=== PATIENT | male | born 1940 | race Caucasian/White ===

== ENCOUNTER 2017-11-06 07:39 | Emergency (ER) | payer MEDICARE, BC ==
[2017-11-06 07:58] VITALS: BP 158/77
[2017-11-06] MEDS ORDERED: Acetaminophen TAB* 325 MG PO ONE (07:59)
--- NOTE | 2017-11-06 08:36 | UC ---
Throat Pain/Nasal Librado HPI - HPI Summary HPI Summary: 77-year-old male comes in with a complaint of sore throat. Started yesterday. Its moderate to severe. He has not taken anything to try to make it better. It hurts to swallow. He feels like he might be some swelling in TherE. Positive fevers. No chest congestion. Minimal rhinorrhea. He is not a smoker. - History of Current Complaint Chief Complaint: UCGeneralIllness Stated Complaint: SORE THROAT Time Seen by Provider: 11/06/17 08:25 Pain Intensity: 0 - Allergies/Home Medications Allergies/Adverse Reactions: Allergies Allergy/AdvReac Type Severity Reaction Status Date / Time aspirin Allergy GI Upset Verified 11/06/17 07:50 Home Medications: Home Medications Losartan/Hydrochlorothiazide [Losartan Potassium/Hydroc 100-12.5 mg] 1 tab PO DAILY 11/06/17 [History Confirmed 11/06/17] Tamsulosin CAP* [Flomax CAP*] 0.4 mg PO DAILY 11/06/17 [History Confirmed ] amLODIPine TAB* [Norvasc 5 mg TAB*] 10 mg PO DAILY 11/06/17 [History Confirmed 11/06/17] PMH/Surg Hx/FS Hx/Imm Hx - Additional Past Medical History Additional PMH: NO DM - Surgical History Surgical History: Yes Surgery Procedure, Year, and Place: TONSILLECTOMY A CHILD. LEFT CYSTO STENT 05/2014. TURP 2015 - Family History Known Family History: Positive: Hypertension, Diabetes - Social History Alcohol Use: None Substance Use Type: None Smoking Status (MU): Former Smoker Amount Used/How Often: SMOKED A PIPE A FEW YEARS Have You Smoked in the Last Year: No When Did the Patient Quit Smoking/Using Tobacco: 10-12 YEARS AGO Review of Systems Constitutional: Fever Skin: Negative Eyes: Negative ENT: Sore Throat, Nasal Discharge Respiratory: Negative Cardiovascular: Negative Gastrointestinal: Negative Motor: Negative Neurovascular: Negative Musculoskeletal: Negative Neurological: Negative Psychological: Negative Is Patient Immunocompromised?: No All Other Systems Reviewed And Are Negative: Yes Physical Exam Triage Information Reviewed: Yes Appearance: Well-Appearing, No Pain Distress, Well-Nourished Vital Signs: Initial Vital Signs Temp 102.2 F 11/06/17 07:52 Pulse 93 11/06/17 07:52 Resp 20 11/06/17 07:52 BP 158/77 11/06/17 07:52 Pulse Ox 94 11/06/17 07:52 Eye Exam: Normal Eyes: Positive: Conjunctiva Clear ENT: Positive: Hearing grossly normal, Pharyngeal erythema, Nasal congestion, TMs normal. Negative: Tonsillar swelling, Tonsillar exudate, Hoarse voice Dental Exam: Normal Neck exam: Normal Neck: Positive: Supple, Enlarged Nodes @ - ANTERIOR Respiratory Exam: Normal Respiratory: Positive: Lungs clear, Normal breath sounds, No respiratory distress Cardiovascular Exam: Normal Cardiovascular: Positive: RRR Musculoskeletal Exam: Normal Musculoskeletal: Positive: Strength Intact, ROM Intact Neurological Exam: Normal Neurological: Positive: Alert Psychological Exam: Normal Skin Exam: Normal Throat Pain/Nasal Course/Dx - Course Course Of Treatment: DISCUSSED VIRAL VERSES BACTERIAL INFECTION AND THE ROLE OF ANTIBIOTICS. THE PATIENT WISHES TO BE ON ANTIBIOTICS AT THIS TIME. - Differential Dx/Diagnosis Provider Diagnoses: PHARYNGITIS Discharge - Sign-Out/Discharge Documenting (check all that apply): Patient Departure All imaging exams completed and their final reports reviewed: No Studies - Discharge Plan Condition: Stable Disposition: HOME Prescriptions: Amoxicillin PO (*) [Amoxicillin 875 MG (*)] 875 mg PO BID #20 tab Patient Education Materials: Pharyngitis (ED), Fever in Adults (ED) Referrals: Talia Le MD [Primary Care Provider] - Additional Instructions: FOLLOW UP WITH YOUR DOCTOR. GET RECHECKED FOR ANY WORSENING OF YOUR CONDITION OR QUESTIONS OR CONCERNS. - Billing Disposition and Condition Condition: STABLE Disposition: Home
== END 2017-11-06 08:56 | disposition home or self-care (01) ==
LOC: UCEAST 07:39
DX: J02.9 Acute pharyngitis, unspecified (principal); Z88.6 Allergy status to analgesic agent; Z87.891 Personal history of nicotine dependence
CPT/HCPCS: 87651; 99212; A9270-GY; G0463

== ENCOUNTER 2021-11-09 05:40 | Observation (INO) ==
[2021-11-09] MEDS ORDERED: Famotidine IV 10 MG/ML 2 ml VIAL (20 mg) IV ONE (06:00)
[2021-11-09] MEDS ORDERED: Lactated Ringers 1000 ml BAG 1,000 ML IV SCH (06:00)
[2021-11-09] MEDS ORDERED: Buffered Lidocaine 1% SYRIN 1 ml INTRADERM ONE ×2 (06:00→06:18)
[2021-11-09] MEDS ORDERED: ceFAZolin 2 GM PREMIX 2 GM/50 ML BAG ONE (06:18)
[2021-11-09] MEDS ORDERED: Famotidine IV 10 MG/ML 2 ml VIAL (20 mg) ONE (06:18)
[2021-11-09] MEDS ORDERED: Ropivacaine 5 MG/ML 20 ML VIAL 0.5% (100 MG) ONE (06:55)
[2021-11-09] MEDS ORDERED: Sevoflurane BOTTLE ONE (06:58)
[2021-11-09] MEDS ORDERED: Sodium Chloride 0.9% 20 ML ONE (07:17)
[2021-11-09] MEDS ORDERED: Midazolam 5 mg/5 ml VIAL 1 mg/ml 5 ml VIAL (5 mg) ONE (07:17)
[2021-11-09] MEDS ORDERED: fentaNYL 100 mcg/2 ml 50 MCG/ML VIAL ONE (07:17)
[2021-11-09] MEDS ORDERED: Lidocaine 2% PF 5 ML VIAL ONE (07:17)
[2021-11-09] MEDS ORDERED: ROPIVACAINE 5 MG/ML 30 ML BTL (0.5%) ONE (07:17)
[2021-11-09] MEDS ORDERED: Acetaminophen IV 1 GM/100ML 1,000 MG/100 ML BAG IV ONE (08:17)
[2021-11-09] MEDS ORDERED: Morphine 2 MG/ML SYRINGE IV PRN (08:18)
[2021-11-09] MEDS ORDERED: Ondansetron ODT 4 mg TAB 4 MG TAB PO PRN (08:18)
[2021-11-09] MEDS ORDERED: Magnesium Hydroxide LIQ 30 ML UDC PO PRN (08:18)
[2021-11-09] MEDS ORDERED: Lactulose 30 ml UDC PO PRN (08:18)
[2021-11-09] MEDS ORDERED: Ondansetron 4 mg VIAL 2 MG/ML 2 ml VIAL IV PRN ×2 (08:18→09:45)
[2021-11-09] MEDS ORDERED: Naloxone 0.4 mg VIAL 0.4 mg/ml 1 ml VIAL IV PRN (09:45)
[2021-11-09] MEDS ORDERED: fentaNYL 100 mcg/2 ml 50 MCG/ML VIAL IV PRN (09:45)
[2021-11-09] MEDS ORDERED: Ondansetron 4 mg VIAL 2 MG/ML 2 ml VIAL ONE (11:46)
[2021-11-09] MEDS: Lactated Ringers 1000 ml BAG 1,000 ML IV SCH (11:49)
[2021-11-09] MEDS: Magnesium Hydroxide LIQ 30 ML UDC PO SCH ×2 (13:37→21:36)
[2021-11-09] MEDS: Vitamin THERAPEUTIC TAB PO SCH (13:37)
[2021-11-09] MEDS ORDERED: Prochlorperazine 5 mg/ml 2 ml VIAL (10 mg) IV PRN (13:40)
[2021-11-09] MEDS ORDERED: Scopolamine 1 mg/72hr PATCH ONE (13:46)
[2021-11-09] MEDS ORDERED: Prochlorperazine 5 mg/ml 2 ml VIAL (10 mg) ONE (13:46)
[2021-11-09] MEDS ORDERED: Scopolamine 1 mg/72hr PATCH TRANSDERM SCH (14:00)
[2021-11-09] MEDS: ceFAZolin 1 GM ADVAN 1 GM in NS 0.9% 50 ML 50 ML IVPB SCH (16:31)
[2021-11-10] MEDS: ceFAZolin 1 GM ADVAN 1 GM in NS 0.9% 50 ML 50 ML IVPB SCH ×2 (00:41→08:02)
[2021-11-10] MEDS: Lactated Ringers 1000 ml BAG 1,000 ML IV SCH (04:43)
[2021-11-10 06:09] LABS: Hematocrit 35 % (42-52); Hemoglobin 11.8 g/dL (14.0-18.0); Mean Platelet Volume 8.1 fL (7.4-10.4); Platelet Count 215 10^3/uL (150-450)
[2021-11-10 06:38] LABS: Calcium 8.2 mg/dL (8.6-10.3)
[2021-11-10 06:44] LABS: eGFR CKD-EPI 92.2 (>60)
[2021-11-10] MEDS: Magnesium Hydroxide LIQ 30 ML UDC PO SCH (07:57)
[2021-11-10] MEDS: Vitamin THERAPEUTIC TAB PO SCH (09:29)
[2021-11-10 11:16] VITALS: BP 132/64
== END 2021-11-10 14:30 | disposition home or self-care (01) ==
LOC: SSU 05:40 → OR 05:40
PROVIDERS: ADMIT Orthopaedic Surgery Adult Reconstructive Orthopaedic Surgery; ATTEND Orthopaedic Surgery Adult Reconstructive Orthopaedic Surgery